=== PATIENT | female | born 1970 | race Caucasian/White ===

== ENCOUNTER → 2016-09-21 | Outpatient (CLI) | payer OTHER ==
--- NOTE | 2016-09-21 13:30 | US ---
Ultrasound Pelvis Complete (Transabdominal and Endovaginal) Including Duplex/Doppler Imaging History: Fibroids. Heavy menses. N92.0. Comparison: Ultrasound November 2015. Technique: Transabdominal and endovaginal ultrasound images were obtained. Endovaginal images obtain ed for better evaluation of the uterine myometrium and adnexa. Duplex/Doppler imaging of adnexa. Findings: Uterus measures 9 x 4 x 4 cm. Endometrial thickness is 5 mm. In the posterior midbody of u terus there is an intramural, heterogenous 1.4 x 1.1 x 1.1 cm leiomyoma previously measuring 2 x 1.6 x 1.16. In the anterior fundal region there is an intramural, hypoechoic leiomyoma measuring 1.5 x 1. 4 x 0.8 cm previously measuring 2.7 x 2.3 x 2 cm. Nabothian cysts noted in the cervix. Right ovary measures 3 x 2.2 x 1.7 cm. Left ovary measures 2.7 x 2.6 x 1.4 cm. Normal follicles in johnny th ovaries. No adnexal masses. No significant free fluid in the pelvis. Color Doppler flow to both ov idalmis without torsion. Impressions 1. Uterine leiomyomata with interval decrease in size of two uterine leiomyomata now measuring up to 1.5 x 1.4 x 0.8 cm. 2. Endometrial thickness 5 mm. 3. No adnexal masses or ovarian torsion. 4. No ascites.
== END ==
LOC: BRMIMAGING 11:21
PROVIDERS: ATTEND Obstetrics & Gynecology
DX: D25.9 Leiomyoma of uterus, unspecified (principal)
CPT/HCPCS: 76856-PO

== ENCOUNTER 2016-11-16 09:02 | Day surgery (SDC) | payer OTHER ==
[~2016-11-16 09:02] MED LIST: LIDOCAINE 1% 30 ML SDV ONE; LR 1,000 ML IV ONE
[2016-11-16] MEDS ORDERED: SILVER NITRATE APPLICATOR 1 APPL TP ONE (09:03)
[2016-11-16] MEDS ORDERED: LIDOCAINE 1% 5 ML SDV ID PRN (09:29)
[2016-11-16] MEDS ORDERED: LR 1,000 ML IV ONE (09:29)
[2016-11-16] MEDS ORDERED: LIDOCAINE 1% 5 ML SDV ONE (09:31)
[2016-11-16] MEDS ORDERED: PHENYLEPHRINE HCL 100 MCG/ML SYR ONE (10:01)
[2016-11-16] MEDS ORDERED: LIDOCAINE 2% 5 ML SDV ONE (10:01)
[2016-11-16] MEDS ORDERED: MIDAZOLAM 2 MG/2 ML VIAL ONE (10:02)
[2016-11-16] MEDS ORDERED: PROPOFOL/EMULSION 500 MG/50 ML BOTTLE IV ONE (10:02)
[2016-11-16] MEDS ORDERED: fentaNYL 100 MCG/2 ML INJ ONE (10:02)
[2016-11-16] MEDS ORDERED: ONDANSETRON 4 MG/2 ML VIAL ONE ×3 (10:03→13:08)
[2016-11-16] MEDS ORDERED: DEXAMETHASONE 4 MG/ML VIAL ONE ×2 (10:03→10:57)
[2016-11-16] MEDS ORDERED: fentaNYL 250 MCG/5 ML INJ ONE (10:57)
[2016-11-16] MEDS ORDERED: epHEDrine SULFATE 10 MG/ML SYR ONE (11:07)
[2016-11-16] MEDS ORDERED: KETOROLAC 30 MG/1 ML SDV ONE (11:15)
--- NOTE | 2016-11-16 12:56 | GOP ---
DATE OF OPERATION: 11/16/2016 SURGEON: Mora Naqvi MD BASTER HAND: None. ANESTHESIA: LMA. PREOPERATIVE DIAGNOSIS: Menorrhagia. POSTOPERATIVE DIAGNOSIS: Menorrhagia. PROCEDURE PERFORMED: Hysteroscopy and endometrial ablation. FINDINGS: Normal uterine cavity. Length is 4 cm, width is 2.5. No polyps or fibroids. Ablation t ook place for 1.5 minutes at 55 power. INDICATIONS: The patient is a 46-year-old female who has menorrhagia and desires surgical managemen t. DESCRIPTION OF PROCEDURE: The patient was taken to the operating room, where she was prepped and dr raphael in normal sterile fashion in the dorsal high lithotomy position. A surgical time-out was perfo rmed, verifying the patient's name, date of , planned procedure, and site. A bivalved speculum was placed in the patient's vagina. The anterior aspect of the cervix was grasped with a single-to oth tenaculum. The cervix was dilated to 6 mm. The camera was placed into the uterine cavity. A f alse passage was initially created but then was able to visualize the uterine cavity and bilateral t ubal ostia. She had a normal-appearing uterine cavity with no polyps or fibroids. The uterine parmjit th was 4 cm. The uterine width was 2.5 cm. The NovaSure endometrial device was placed. There was some difficulty getting a full deployment of the NovaSure device. It only deployed to 2.5 cm, and a fter the endometrial ablation, the device appeared to only have ablated the lower uterine segment, a nd the top of the fundus appeared to not have any endometrial ablation occur. The endometrial ablat ion took place for 1.5 minutes. The single-tooth tenaculum was removed. Hemostasis obtained with s ilver nitrate. The patient tolerated the procedure well and was stable to the recovery room. A cavity integrity assessment was performed prior to the procedure ensuring there was no perforation s, which there was none. It was a normal cavity integrity assessment. /[id number]/[id number]
== END 2016-11-16 14:17 | disposition home or self-care (01) ==
LOC: FSGY 09:02
PROVIDERS: ATTEND Obstetrics & Gynecology
PROC: 0U5B8ZZ Destruction of Endometrium, Via Natural or Artificial Opening Endoscopic (ICD-10-PCS; principal; 2016-11-16 10:30)
DX: N92.0 Excessive and frequent menstruation with regular cycle (principal)
CPT/HCPCS: J1100; J1885; J2250; J2370; J2405; J2704; J3010

== ENCOUNTER → 2017-06-08 | Outpatient (CLI) | payer OTHER | LOC: FIMAGING 12:41 | PROVIDERS: ATTEND Obstetrics & Gynecology | DX: D25.0 Submucous leiomyoma of uterus (principal) ==

== ENCOUNTER → 2018-10-05 | Outpatient (CLI) | payer OTHER | LOC: BMCIMAGING 12:49 | PROVIDERS: ATTEND Family Medicine | DX: Z12.31 Encounter for screening mammogram for malignant neoplasm of breast (principal) ==

== ENCOUNTER → 2018-10-17 | Outpatient (CLI) | payer OTHER | LOC: BMCIMAGING 08:44 | PROVIDERS: ATTEND Family Medicine | DX: M79.642 Pain in left hand (principal) ==